=== PATIENT | female | born 1985 | race Hispanic/Latino ===

== ENCOUNTER 2024-04-13 10:22 | Observation (INO) | payer BC ==
[~2024-04-13] VITALS: Ht 157.5 cm; Wt 121.6 kg
[2024-04-13 10:29] VITALS: BP 139/82; PULSE 81; RESP 18; TEMP 97.9
[2024-04-13 11:09] LABS: BASOPHILS # (AUTO) 0.05 K/uL (0.00-0.20); BASOPHILS % (AUTO) 0.5 % (0.0-5.0); EOSINOPHILS # (AUTO) 0.24 K/uL (0.00-0.70); EOSINOPHILS % (AUTO) 2.2 % (0.0-8.0); HEMATOCRIT 36.4 % (36-48); IMMATURE GRANULOCYTE ABSOLUTE 0.14 K/uL (0-1); LYMPHOCYTES # (AUTO) 2.1 K/uL (1.0-4.8); LYMPHOCYTES % (AUTO) 18.7 % (21.0-51.0); MEAN CORPUSCULAR HEMOGLOBIN 27.9 pg (27.0-33.0); MEAN CORPUSCULAR HGB CONC 31.6 g/dL (32.0-36.0); MEAN CORPUSCULAR VOLUME 88.3 fL (79-99); MONOCYTES # (AUTO) 0.8 K/uL (0.1-1.0); MONOCYTES % (AUTO) 7.6 % (3.0-13.0); NEUTROPHILS # (AUTO) 7.7 K/uL (1.8-7.7); NEUTROPHILS % (AUTO) 69.7 % (40.0-77.0); PLATELET COUNT (AUTO) 331 K/uL (130-400); RED BLOOD CELL COUNT(AUTO) 4.12 MIL/uL (4.00-5.50); RED CELL DISTRIBUTION WIDTH 13.6 % (11.0-15.5)
[2024-04-13 11:11] LABS: APPEARANCE,URINE CLEAR (CLEAR); BILIRUBIN,URINE NEGATIVE (NEGATIVE); COLOR,URINE LIGHT-YELLOW (YELLOW); GLUCOSE, URINE (UA) NEGATIVE (NEGATIVE); KETONES,URINE NEGATIVE (NEGATIVE); LEUKOCYTE ESTERASE ,URINE NEGATIVE Leu/uL (NEGATIVE); NITRATE,URINE NEGATIVE (NEGATIVE); OCCULT BLOOD,URINE SMALL (NEGATIVE); PH,URINE 6.5 (5.0-8.0); PROTEIN,URINE NEGATIVE (NEGATIVE); UROBILINOGEN,URINE 0.2 mg/dL (0.2-1.0)
[2024-04-13 11:16] LABS: ADD UA MICROSCOPIC YES
[2024-04-13 11:19] LABS: CREATININE 0.6 mg/dL (0.5-1.0); POTASSIUM 3.6 mmol/L (3.5-5.1)
[2024-04-13 11:24] LABS: ALBUMIN 2.3 g/dL (3.5-5.0); BILIRUBIN,TOTAL 0.6 mg/dL (0.2-1.0); URIC ACID 3.2 mg/dL (2.6-7.2)
[2024-04-13 11:25] LABS: MUCUS,URINE RARE LPF (None Seen); OTHER CASTS, URINE 1 /LPF (None Seen); SQUAMOUS EPITHELIAL CELL,UR RARE /HPF (0-2); WBC,URINE 0-1 /HPF (0-1)
[2024-04-13 12:24] LABS: INR <= 0.93 (0.85-1.15); PROTHROMBIN TIME 9.8 SEC (9.6-11.6)
[2024-04-13 12:25] LABS: PARTIAL THROMBOPLASTIN TIME 27.5 SEC (26.3-35.5)
[2024-04-13 12:32] LABS: FIBRINOGEN 745 mg/dL (180-350)
== END 2024-04-13 11:53 | disposition home or self-care (01) ==
LOC: EDH 10:22 → LDH 10:51
PROVIDERS: ADMIT Obstetrics & Gynecology; ATTEND Obstetrics & Gynecology
DX: O13.3 Gestational [pregnancy-induced] hypertension without significant proteinuria, third trimester (principal); Z3A.36 36 weeks gestation of pregnancy
CPT/HCPCS: 59025; 84550; 80053; 85025; 85384; 85610; 85730; 81001; 36415; 76805; G0378 ×2; G0379; A4351

== ENCOUNTER 2024-04-27 09:50 | Observation (INO) | payer BC ==
[~2024-04-27] VITALS: Ht 157.5 cm; Wt 125.6 kg
[2024-04-27 11:27] LABS: APPEARANCE,URINE CLEAR (CLEAR); BILIRUBIN,URINE NEGATIVE (NEGATIVE); COLOR,URINE LIGHT-YELLOW (YELLOW); GLUCOSE, URINE (UA) NEGATIVE (NEGATIVE); KETONES,URINE NEGATIVE (NEGATIVE); LEUKOCYTE ESTERASE ,URINE NEGATIVE Leu/uL (NEGATIVE); NITRATE,URINE NEGATIVE (NEGATIVE); OCCULT BLOOD,URINE MODERATE (NEGATIVE); PH,URINE 7.5 (5.0-8.0); PROTEIN,URINE NEGATIVE (NEGATIVE); UROBILINOGEN,URINE 0.2 mg/dL (0.2-1.0)
[2024-04-27 11:35] LABS: ADD UA MICROSCOPIC YES
[2024-04-27 11:50] LABS: BACTERIA,URINE Rare /HPF (None Seen); WBC,URINE 0-1 /HPF (0-1)
--- NOTE | 2024-04-27 11:50 | HMCIMG ---
US OB >14 WEEKS REASON: EFW COMPARISON: None TECHNIQUE: Routine OB sonogram was performed. FINDINGS: There is a single fetus in cephalic presentation with positive motion and heartbeat, 143 BPM. Composite gestational age is 38 weeks 4 days. Placenta is anterior and grade 3 with ANTONINO decreased at 4.9 cm. Estimated weight is 3684 g. Visualized anatomy appears unremarkable. IMPRESSION: 1. Single fetus cephalic presentation 38 weeks and 4 days composite gestational age, estimated weight 3684 g. 2. ANTONINO decreased at 4.9 cm.
[2024-04-27] MEDS ORDERED: LACTATED RINGERS 500 ML 500 ML IV PRN (12:00)
[2024-04-27] MEDS ORDERED: MEPERIDINE-PF 50 MG/ML SYG IVP PRN (12:00)
[2024-04-27] MEDS ORDERED: NALoxone HCL 0.4 MG/1 ML ML IV PRN (12:00)
[2024-04-27] MEDS ORDERED: ePHEDrine SULFate 50 MG/ML AMPULE IVP PRN (12:00)
[2024-04-27] MEDS ORDERED: PROMETHAZINE HCL 25 MG/ML 1ML AMPULE IM PRN (12:00)
[2024-04-27 12:09] LABS: BASOPHILS # (AUTO) 0.04 K/uL (0.00-0.20); BASOPHILS % (AUTO) 0.4 % (0.0-5.0); EOSINOPHILS # (AUTO) 0.16 K/uL (0.00-0.70); EOSINOPHILS % (AUTO) 1.7 % (0.0-8.0); HEMATOCRIT 33.8 % (36-48); IMMATURE GRANULOCYTE ABSOLUTE 0.08 K/uL (0-1); LYMPHOCYTES # (AUTO) 1.9 K/uL (1.0-4.8); LYMPHOCYTES % (AUTO) 20.4 % (21.0-51.0); MEAN CORPUSCULAR HEMOGLOBIN 28.4 pg (27.0-33.0); MEAN CORPUSCULAR HGB CONC 32.5 g/dL (32.0-36.0); MEAN CORPUSCULAR VOLUME 87.1 fL (79-99); MONOCYTES # (AUTO) 0.7 K/uL (0.1-1.0); MONOCYTES % (AUTO) 7.7 % (3.0-13.0); NEUTROPHILS # (AUTO) 6.6 K/uL (1.8-7.7); PLATELET COUNT (AUTO) 317 K/uL (130-400); RED BLOOD CELL COUNT(AUTO) 3.88 MIL/uL (4.00-5.50); RED CELL DISTRIBUTION WIDTH 13.7 % (11.0-15.5); WHITE BLOOD COUNT (AUTO) 9.5 K/uL (4.8-10.8)
[2024-04-27 12:14] LABS: INR <= 0.93 (0.85-1.15); PROTHROMBIN TIME 9.9 SEC (9.6-11.6)
[2024-04-27 12:16] LABS: PARTIAL THROMBOPLASTIN TIME 27.2 SEC (26.3-35.5)
[2024-04-27 12:17] LABS: ALBUMIN 2.2 g/dL (3.5-5.0); BILIRUBIN,TOTAL 0.7 mg/dL (0.2-1.0); CREATININE 0.6 mg/dL (0.5-1.0); POTASSIUM 3.9 mmol/L (3.5-5.1); TOTAL PROTEIN, SERUM 6.6 g/dL (6.0-8.3); URIC ACID 3.6 mg/dL (2.6-7.2)
[2024-04-27 12:42] LABS: FIBRINOGEN 697 mg/dL (180-350)
[2024-04-27] MEDS: LACTATED RINGERS 1000ML 1,000 ML IV SCH (13:07)
[2024-04-27] MEDS: AMPICILLIN 2GM+NS 100ML 100 ML IV SCH (13:07)
[2024-04-27] MEDS: AMPICILLIN 1GM+NS 50ML 50 ML IV SCH (17:02)
--- NOTE | 2024-04-27 17:59 | HMCIMG ---
US OB ANTONINO/POSITION HISTORY: Follow-up COMPARISON: Same day ultrasound study TECHNIQUE: ultrasound study was performed. FINDINGS: There is single intrauterine gestation with heart rate of 135 beats per minute. The fetus is in cephalic presentation with longitudinal lie. ANTONINO is 14.9 cm.. The placenta is located anteriorly. No evidence of placenta previa is seen. IMPRESSION: 1. There is single intrauterine gestation with heart rate of 135 beats per minute. ANTONINO is 14.9 cm.
[2024-04-27] MEDS ORDERED: MISOPROSTOL 25 MCG TAB VG PRN (19:00)
== END 2024-04-27 18:40 | disposition home or self-care (01) ==
LOC: INTOOBSV 09:50 → OBSVTOIN 09:50 → LDH 09:50
PROVIDERS: ADMIT Obstetrics & Gynecology; ATTEND Obstetrics & Gynecology
DX: O41.03X0 Oligohydramnios, third trimester, not applicable or unspecified (principal); O26.893 Other specified pregnancy related conditions, third trimester; R03.0 Elevated blood-pressure reading, without diagnosis of hypertension; Z3A.38 38 weeks gestation of pregnancy; Z79.899 Other long term (current) drug therapy; Z86.2 Personal history of diseases of the blood and blood-forming organs and certain disorders involving the immune mechanism
CPT/HCPCS: 96365; 96366; 59025; 96361; 84550; 80053; 85025; 85384; 85610; 85730; 86592; 86850; 86900; 86901; 87340; 81001; 36415; 76805; G0378 ×8; J7120; J0290 ×3; 76815; 96360; G0379